=== PATIENT | male | born 1955 | race Caucasian/White ===

== ENCOUNTER 2017-06-21 16:00 | Inpatient (IN) | payer OTHER ==
[2017-07-06] MEDS ORDERED: Heparin 5,000 UNITS/ML VIAL ONE (10:34)
[2017-07-06] MEDS ORDERED: Fentanyl 100 MCG/2 ML VIAL ONE ×2 (11:13→14:39)
[2017-07-06] MEDS ORDERED: Bupivacaine/Epinephrine 0.25% 30 ML VIAL ONE (11:14)
[2017-07-06] MEDS ORDERED: Promethazine HCl 25 MG/ML VIAL ONE (11:14)
[2017-07-06] MEDS ORDERED: PHENYLEPHRINE-NS 100 MCG/ML 10 ML SYRINGE ONE (11:59)
[2017-07-06] MEDS ORDERED: Glycopyrrolate 0.2 MG/ML 5 ML SYRINGE ONE (11:59)
[2017-07-06] MEDS ORDERED: Propofol 200 MG/20 ML VIAL ONE (11:59)
[2017-07-06] MEDS ORDERED: Dexamethasone 20 MG/5 ML VIAL ONE (11:59)
[2017-07-06] MEDS ORDERED: Lidocaine 1% PF 5 ML VIAL ONE (11:59)
[2017-07-06] MEDS ORDERED: Ondansetron HCl/PF 4 MG/2 ML Vial ONE (11:59)
[2017-07-06] MEDS ORDERED: Ketorolac Tromethamine 30 MG/ML VIAL ONE (11:59)
[2017-07-06] MEDS ORDERED: ePHEDrine/0.9% NaCl/PF SYRINGE 50 mg/10 ml ONE (11:59)
[2017-07-06] MEDS ORDERED: Dextrose 50% Abboject 50 ML SYRINGE SLOW IVP PRN (13:54)
[2017-07-06] MEDS ORDERED: Ondansetron HCl/PF 4 MG/2 ML Vial IVP PRN ×3 (13:54→15:02)
[2017-07-06] MEDS ORDERED: Hydrocodone-Acetamin 15 ML UDCUP PO PRN ×2 (13:54→15:19)
[2017-07-06] MEDS ORDERED: Promethazine HCl 25 MG/ML VIAL IM PRN ×2 (13:54→15:02)
[2017-07-06] MEDS ORDERED: Dextrose 5% in Water 1,000 ML IV PRN (13:54)
[2017-07-06] MEDS ORDERED: diphenhydrAMINE HCl 50 MG/ML 1 ML VIAL IVP PRN ×2 (13:54→15:02)
[2017-07-06] MEDS ORDERED: Morphine Sulfate 2 MG/ML SYRINGE SLOW IVP PRN (14:13)
[2017-07-06] MEDS ORDERED: Promethazine HCl 25 MG/ML VIAL SLOW IVP PRN (14:13)
[2017-07-06] MEDS ORDERED: Meperidine HCl/PF 25 MG/ML VIAL SLOW IVP PRN (14:13)
--- NOTE | 2017-07-06 14:33 | OP ---
PREOPERATIVE DIAGNOSIS: Morbid obesity. SURGEON: Kamari Jefferson M.D. PROCEDURES PERFORMED: Laparoscopic sleeve gastrectomy, esophagogastroscopy. INDICATIONS: The patient is a 61-year-old male, morbidly obese, who has attempted multiple weight l oss programs without success. FINDINGS: A 38-Divehi bougie used. PROCEDURE IN DETAIL: After informed consent was obtained, the patient was taken to the operating ro om and given general endotracheal anesthesia. He was placed in the supine position. The abdomen wa s prepped and draped in the usual fashion. Local anesthesia infiltrated subcutaneously and deep, a 12 mm incision was performed 8 inches below the xiphoid slightly to the left. Veress needle inserte d. Drop test performed. Pneumoperitoneum was created to a volume of 2 liters of carbon dioxide. U tilizing a bladeless 12 mm trocar and 0 degree laparoscope, direct visual entry in the abdominal cav ity was performed. Pneumoperitoneum was created to a pressure of 15 mmHg. The patient placed in st eep reverse Trendelenburg position. Nathansen liver retractor inserted. Left lobe of liver retract ed superiorly. Pylorus identified, a 12 mm port placed on the right beneath it and two 12s placed l eft subcostal. The omentum was taken off the greater curvature utilizing the LigaSure. Left crura defined with the LigaSure and short gastrics divided with LigaSure and the left crura defined with L igaSure. A 38-Divehi bougie inserted and directed into the antrum. A linear 60 mm green load stapl er used to divide the antrum to the bougie, gold load along the bougie, and a series of blues throug h the angle of His. Intraoperative endoscopy was performed. The video endoscope inserted under dir ect vision and advanced into the sleeve. The staple line inspected. There were no air leaks and th ere was no bleeding. The stomach insufflated with air under water. There was no air leak. Stomach decompressed. Scope removed. Remnant stomach removed from the abdomen through the left lateral po rt site. The fascia closed with 0 Vicryl suture and the GraNee needle. Trocars and retractors dorota adriane. The skin closed with interrupted 4-0 Rapide. Steri-Strips applied. Sterile bandage applied. The patient tolerated the procedure well and transferred to recovery in good condition. Sponge and needle count verified correct x2.
[2017-07-06] MEDS ORDERED: Naloxone HCl 0.4 mg/ml Vial IV PRN (15:02)
[2017-07-06] MEDS ORDERED: Fentanyl 5000 MCG/250 ML CADD IVPB PRN (15:02)
[2017-07-06] MEDS ORDERED: diphenhydrAMINE HCl 25 MG CAP PO PRN (15:02)
[2017-07-06] MEDS ORDERED: Zolpidem Tartrate 5 MG TAB PO PRN (15:02)
[2017-07-06] MEDS ORDERED: diphenhydrAMINE HCl 50 MG/ML 1 ML VIAL IM PRN (15:02)
[2017-07-06] MEDS ORDERED: Communication Order-Pharmacy FS SCH (15:15)
[2017-07-06] MEDS ORDERED: Fentanyl 20 MCG/ML 250 ML ONE (15:21)
[2017-07-06] MEDS: D5 1/2 NS w/20 mEq KCL 1,000 ML IV SCH ×2 (18:25→22:08)
[2017-07-06 21:23] VITALS: BMI 42.8
[2017-07-07] MEDS: D5 1/2 NS w/20 mEq KCL 1,000 ML IV SCH (00:30)
[2017-07-07 05:10] LABS: #Lymphocytes 0.7 thou/uL (1.20-3.40); #Neutrophils 11.5 thou/uL (1.40-6.50); %Basophils 0.2 % (0.0-1.0); %Eosinophils 0.1 % (0.0-10.0); %Lymphocytes 5.6 % (21.0-51.0); %Monocytes 7.3 % (0.0-10.0); Hematocrit 48.1 % (42.0-52.0); Red Blood Cell (RBC) Count 4.74 mill/uL (4.70-6.10); White Blood Cell (WBC) Count 13.2 thou/uL (4.8-10.8)
[2017-07-07 05:19] LABS: Anion Gap 13 mmol/L (10-20); BUN (Urea Nitrogen) 14 mg/dL (8.4-25.7); Calc. Creatinine Clearance 135 mL/min (70-130); Calcium 8.8 mg/dL (7.8-10.44); Carbon Dioxide 25 mmol/L (22-29); Chloride 104 mmol/L (98-107); Estimated GFR-MDRD 59
[2017-07-07] MEDS ORDERED: Enoxaparin Sodium 40 MG/0.4 ML SYRINGE SC SCH (09:00)
[2017-07-07] MEDS ORDERED: Pantoprazole 40 MG VIAL IVP SCH (09:00)
--- NOTE | 2017-07-07 09:42 | RAD ---
LIMITED SINGLE SIP UPPER GI WITH 15 ML GASTROGRAFIN: HISTORY: A 61-year-old male with post bariatric surgery (vertical gastric sleeve). FINDINGS: There is passage of contrast from the esophagus into the gastric remnant. No contrast extravasation is seen. IMPRESSION: No evidence of obstruction or leak. FLUOROSCOPY TIME: 0.6 minutes. DOSE: 27.341 mGy*\S\cm2. POS: [facility]
--- NOTE | 2017-07-07 10:46 | DIS ---
DISCHARGE DIAGNOSIS: Morbid obesity. PROCEDURES DURING ADMISSION: Laparoscopic sleeve gastrectomy, intraoperative esophagogastroscopy, a nd postoperative Gastrografin swallow. HOSPITAL COURSE: The patient was admitted, taken to the operating room, where he underwent sleeve g astrectomy. Postoperatively, he has done well. X-ray was fine. Started on liquids, tolerating wel l. He is discharged home on hydrocodone and Zofran. Follow up with me in 2 weeks.
[2017-07-07 11:33] VITALS: BP 119/71; TEMP 97.9
[2017-07-07] MEDS ORDERED: Iopamidol 300 61% 30 ML VIAL ONE (12:00)
== END 2017-07-07 12:56 | disposition home or self-care (01) | DRG 621 ==
LOC: SURG A 07-06 09:49
PROVIDERS: ADMIT Surgery; ATTEND Surgery
PROC: 0DB64Z3 Excision of Stomach, Percutaneous Endoscopic Approach, Vertical (ICD-10-PCS; principal; 2017-07-06)
PROC: 0DJ08ZZ Inspection of Upper Intestinal Tract, Via Natural or Artificial Opening Endoscopic (ICD-10-PCS; 2017-07-06)
DX: E66.01 Morbid (severe) obesity due to excess calories (principal); I10 Essential (primary) hypertension; G47.30 Sleep apnea, unspecified; Z68.41 Body mass index [BMI] 40.0-44.9, adult; E20.9 Hypoparathyroidism, unspecified
CPT/HCPCS: 36415; 74241; 80048; 85025; 88307; 88312; 94760; C9113; J1100; J1644; J1650; J1885; J2001; J2405; J2550; J2704; J3010

== ENCOUNTER 2017-06-21 16:18 | Outpatient (CLI) | payer OTHER | END 2017-06-21 16:19 | disposition home or self-care (01) | LOC: LABBT 16:18 | PROVIDERS: ATTEND Surgery | DX: Z01.818 Encounter for other preprocedural examination (principal); E66.01 Morbid (severe) obesity due to excess calories ==

== ENCOUNTER 2017-06-25 10:36 | Outpatient (CLI) | payer OTHER | END 2017-06-25 10:37 | disposition home or self-care (01) | LOC: DTY/OP 10:36 | PROVIDERS: ATTEND Surgery | DX: E66.01 Morbid (severe) obesity due to excess calories (principal); G47.30 Sleep apnea, unspecified; I10 Essential (primary) hypertension | CPT/HCPCS: 97802 ==

== ENCOUNTER 2018-03-04 13:43 | Outpatient (CLI) | payer BC ==
--- NOTE | 2018-03-04 15:33 | MRI ---
MRI CERVICAL SPINE WITHOUT CONTRAST: HISTORY: Cervical disk degeneration, right shoulder pain, and pain between shoulder blades. The exam is limited due to artifact and patient body habitus. FINDINGS: Vertebral body heights and marrow signal are maintained. There are calcified complexes and uncoverte bral hypertrophic changes present at multiple levels. There is a large right-sided disk protrusion c ausing severe right neural foraminal stenosis and nerve root compression at C5-6 level. There is mod erate left-sided neural foraminal stenosis at this level as well. No cord compression is seen. The cervical spinal cord demonstrates normal course, caliber, and signa l. No tonsillar herniation is identified. Moderate left-sided neural foraminal stenosis is seen at C6-7 level. IMPRESSION: 1. Cervical spondylosis with severe right and moderate left neural foraminal stenosis at C5-6 level and moderate left-side neural foraminal stenosis at C6-7 level. 2. Large right-sided disk protrusion causing severe right-sided neural foraminal stenosis and nerve root compression at C5-6 level. POS: [facility]
== END 2018-03-04 13:44 | disposition home or self-care (01) ==
LOC: TBSIIMAG 13:43
PROVIDERS: ATTEND Neurological Surgery
DX: M50.20 Other cervical disc displacement, unspecified cervical region (principal); M47.892 Other spondylosis, cervical region; M99.81 Other biomechanical lesions of cervical region; M50.30 Other cervical disc degeneration, unspecified cervical region
CPT/HCPCS: 72141

== ENCOUNTER 2018-04-11 07:53 | Outpatient (CLI) | payer BC ==
[2018-04-11 09:27] LABS: #Basophils 0.1 thou/uL (0.0-0.2); #Eosinphils 0.8 thou/uL (0.0-0.7); #Lymphocytes 1.9 thou/uL (1.20-3.40); #Monocytes 0.8 thou/uL (0.11-0.59); %Basophils 1.1 % (0.0-1.0); %Eosinophils 10.4 % (0.0-10.0); %Lymphocytes 25.3 % (21.0-51.0); %Monocytes 10.4 % (0.0-10.0); %Neutrophils 52.8 % (42.0-75.0); Hemoglobin 15.2 g/dL (14.0-18.0); Mean Corpuscular Hemoglobin 32.3 pg (27.0-31.0); Mean Platelet Volume 7.6 fL (7.4-10.4); Platelet Count 269 thou/uL (130-400); RBC Distribution Width 12.8 % (11.5-14.5); White Blood Cell (WBC) Count 7.6 thou/uL (4.8-10.8)
[2018-04-11 09:45] LABS: Anion Gap 11 mmol/L (10-20); BUN (Urea Nitrogen) 25 mg/dL (8.4-25.7); Calc. Creatinine Clearance 0 mL/min (70-130); Calcium 9.4 mg/dL (7.8-10.44); Carbon Dioxide 29 mmol/L (22-29); Chloride 102 mmol/L (98-107); Estimated GFR-MDRD 65; Glucose 91 mg/dL (70-105); Potassium 3.7 mmol/L (3.5-5.1); Sodium 138 mmol/L (136-145)
== END 2018-04-11 07:54 | disposition home or self-care (01) ==
LOC: LABBT 07:53
PROVIDERS: ATTEND Neurological Surgery
DX: Z01.818 Encounter for other preprocedural examination (principal); M54.12 Radiculopathy, cervical region
CPT/HCPCS: 80048; 85025

== ENCOUNTER 2018-04-18 06:42 | Day surgery (SDC) | payer BC ==
[2018-04-18] MEDS ORDERED: CEFAZOLIN/Water 2 GM/20 ML SYRINGE ONE (07:06)
[2018-04-18] MEDS ORDERED: Thrombin 5000 UNITS/5 ML VIAL ONE (07:12)
[2018-04-18] MEDS ORDERED: Sodium Chloride 0.9% 10 ML ONE (07:16)
[2018-04-18] MEDS ORDERED: Midazolam HCl 2 mg/2 ml Vial ONE (07:25)
[2018-04-18] MEDS ORDERED: Fentanyl 100 MCG/2 ML VIAL ONE ×5 (08:19→10:09)
--- NOTE | 2018-04-18 09:40 | OP ---
DATE OF PROCEDURE: 04/18/2018 SURGEON: Juan French M.D. CAPTAIN OF GUARDS: Baldev Packer PA-C PROCEDURE: Anterior cervical discectomy C5-6, interbody arthrodesis, intravertebral biomechanical de vice, local morselized autograft, demineralized bone matrix, anterior titanium instrumentation C5-6. PROCEDURE IN DETAIL: The patient was brought to the operating room, intubated. He was positioned ferreira pine in modest extension on a gel-filled donut. Incision was made in the right precervical area and dissecting medial to the sternocleidomastoid muscle, identified the anterior cervical spine and our l evel was confirmed by x-ray. We debrided anterior osteophytes, placed distraction across the disk, a nd using the operating microscope and microdissection techniques, completely decompressed the intrave rtebral disc at C5-6. The bony endplates were then decorticated for the purpose of arthrodesis and a ppropriately sized intravertebral biomechanical PEEK device was brought into the field, filled with d emineralized bone and local morselized autograft, and tapped into place securely at C5-6. Next, an a nterior plate was brought in the field inserted to C5 and C6 using two 14 mm screws at each level. T he wound was then extensively irrigated, immaculate hemostasis was secured. The wound was closed in anatomic layers.
[2018-04-18] MEDS ORDERED: Ondansetron HCl/PF 4 MG/2 ML Vial ONE (10:48)
[2018-04-18] MEDS ORDERED: ePHEDrine/0.9% NaCl/PF SYRINGE 50 mg/10 ml ONE (10:48)
[2018-04-18] MEDS ORDERED: Glycopyrrolate 0.2 MG/ML 5 ML SYRINGE ONE (10:48)
[2018-04-18] MEDS ORDERED: Dexamethasone 20 MG/5 ML VIAL ONE (10:48)
[2018-04-18] MEDS ORDERED: PROPOFOL 200 MG/20 ML VIAL ONE (10:48)
[2018-04-18] MEDS ORDERED: Ketorolac Tromethamine 30 MG/ML VIAL ONE (10:48)
[2018-04-18] MEDS ORDERED: Lidocaine 1% PF 5 ML VIAL ONE (10:48)
[2018-04-18] MEDS ORDERED: tiZANidine HCl 4 MG TAB ONE (11:12)
[2018-04-18] MEDS ORDERED: HYDROcodone/Acetaminophen 5/325 mg Tablet ONE (11:36)
== END 2018-04-18 12:00 | disposition home or self-care (01) ==
LOC: SDC 06:42
PROVIDERS: ATTEND Neurological Surgery
PROC: 0RG10A0 Fusion of Cervical Vertebral Joint with Interbody Fusion Device, Anterior Approach, Anterior Column, Open Approach (ICD-10-PCS; principal; 2018-04-18)
PROC: 0RT30ZZ Resection of Cervical Vertebral Disc, Open Approach (ICD-10-PCS; principal; 2018-04-18)
DX: M50.322 Other cervical disc degeneration at C5-C6 level (principal); M47.812 Spondylosis without myelopathy or radiculopathy, cervical region; I10 Essential (primary) hypertension; E03.9 Hypothyroidism, unspecified; M10.9 Gout, unspecified; M19.90 Unspecified osteoarthritis, unspecified site; Z79.899 Other long term (current) drug therapy; Z98.890 Other specified postprocedural states
CPT/HCPCS: 76001; 96374; A4216; C1713; C1776; J2250; J3010; J3490

== ENCOUNTER 2018-05-04 15:23 | Outpatient (CLI) | payer BC ==
--- NOTE | 2018-05-04 15:50 | RAD ---
RADIOGRAPH CERVICAL SPINE 3 VIEWS: 05/04/18 HISTORY: 62-year-old male with "M47.812, spinal osteoarthritis." Cervicalgia and cervical spondylosis. COMPARISON: None. FINDINGS: There are anterior metallic plate and screws at C5 and C6. Tiny metallic markers for interbody graft/ cage at the C5-6 disc space. Mild disc space narrowing at C4-5. Mild to moderate disc space narrowing at C6-7. The C7-T1 level is obscured by the shoulders on the lateral view. Alignment is normal throu ghout the visualized levels. The vertebral body heights are maintained. No prevertebral soft tissue s welling. Normal bilateral atlanto-axial joints. There are no high grade degenerative facet changes. IMPRESSION: 1. Status post anterior cervical discectomy and fusion at C5-6. 2. Mild discogenic degenerative changes at C4-5 and C6-7. HARSH [] POS: [facility]
== END 2018-05-04 15:24 | disposition home or self-care (01) ==
LOC: TBSIIMAG 15:23
PROVIDERS: ATTEND Physician Assistant
DX: M47.892 Other spondylosis, cervical region (principal); Z98.1 Arthrodesis status
CPT/HCPCS: 72040

== ENCOUNTER 2018-06-23 15:09 | Outpatient (CLI) | payer BC ==
--- NOTE | 2018-06-23 16:33 | RAD ---
FOUR VIEWS CERVICAL SPINE: Date: 06-23-18 History: Cervical radiculopathy. Neck surgery in March 2018. Comparison: 05-14-18 FINDINGS: Again noted are post-surgical changes related to anterior cervical fusion at the C5-6 level with ante rior plate and screws again transfixing this level with intradiscal prosthesis present. No hardware c omplication is seen. C1 to the cervicothoracic junction is seen on the lateral view. There is no evid ence of a fracture or subluxation. There is mild osteophyte formation seen at the C3-4 and C4-5 level s as well as the C6-7 level with minimal osteophyte formation present. Vertebral body heights are wit hin normal limits. The prevertebral soft tissues are within normal limits. IMPRESSION: Stable mild degenerative changes as well as stable post-operative changes of the cervical spine. POS: [facility]
== END 2018-06-23 15:10 | disposition home or self-care (01) ==
LOC: TBSIIMAG 15:09
PROVIDERS: ATTEND Neurological Surgery
DX: M47.22 Other spondylosis with radiculopathy, cervical region (principal); Z98.890 Other specified postprocedural states
CPT/HCPCS: 72040

== ENCOUNTER 2018-07-21 08:56 | Outpatient (CLI) | payer BC ==
--- NOTE | 2018-07-21 12:39 | MRI ---
MRI THORACIC SPINE: INDICATIONS: Thoracic pain. Mid back pain. TECHNIQUE: Multiplanar, multisequential images of the thoracic spine obtained with multiplanar reconstruction. FINDINGS: The thoracic vertebrae maintain normal height and alignment. Vertebral body signal is normal. No co mpression or edema identified. There are mild degenerative changes present with anterior osteophytes from the thoracic vertebrae. At T6-T7, there is a central disk protrusion, which indents the anterior thecal sac and effaces the a nterior subarachnoid space. It mildly impinges on the thoracic cord at this level. Mild diffuse disk bulge at T10-T11 flattens the thecal sac and mildly effaces the anterior subarachno id space. No cord impingement. Mild bulge at T11-T12 also minimally effaces the anterior subarachnoid space. Thoracic cord signal appears normally maintained. IMPRESSION: Central disk protrusion at T6-T7 impinges on the anterior thoracic cord. POS: [facility]
== END 2018-07-21 08:57 | disposition home or self-care (01) ==
LOC: BICMRI 08:56
PROVIDERS: ATTEND Neurological Surgery
DX: M54.6 Pain in thoracic spine (principal); M51.24 Other intervertebral disc displacement, thoracic region
CPT/HCPCS: 72146

== ENCOUNTER 2019-02-24 09:43 | Outpatient (CLI) | payer BC ==
--- NOTE | 2019-02-24 11:04 | MRI ---
MRI LUMBAR SPINE NONCONTRAST: HISTORY: Low back pain COMPARISON: None FINDINGS: Heterogeneous T1 marrow signal intensity. Type II Modic changes at L4-L5 and L5-S1. Appropriate signal intensity of the paraspinal muscles and solid organs. Conus medullaris terminates at the inferior aspect of L1. T12-L1:Minimal right paracentral disc bulge. No significant central canal stenosis or neural foramina l narrowing. L1-L2:Mild loss of disc space height. Generalized disc bulge with mild central canal stenosis. Mild b ilateral neural foraminal narrowing. L2-L3:Adequate disc hydration. No significant loss of disc space height. Minimal generalized disc bul ge with mass effect and flattening of the thecal sac. Overall mild central canal stenosis. Right neural foramen is patent. Mild left neural foraminal narrowing. L3-L4:Adequate disc hydration. Generalized disc bulge flattens the ventral thecal sac. Mild central c anal stenosis. Bilaterally, neural foramina are patent. L4-L5:Mild loss of disc space height. Generalized disc bulge results in mild central canal stenosis. Disc material abuts but does not obscure either traversing L5 nerve root. Mild facet hypertrophy. Moderate right and mild to moderate left foraminal narrowing. L5-S1:Severe loss of disc space height. Central, right subarticular disc bulge. No significant stenos is of the thecal sac. Subarticular zones are unremarkable. Moderate right and mild to moderate left foraminal narrowing. IMPRESSION: Degenerative changes of lumbar spine as detailed above. No evidence of high-grade central canal steno sis. Transcribed Date/Time: 02/24/2019 11:15 AM
== END 2019-02-24 09:44 | disposition home or self-care (01) ==
LOC: TBSIIMAG 09:43
PROVIDERS: ATTEND Neurological Surgery
DX: M54.5 Low back pain (principal); M47.816 Spondylosis without myelopathy or radiculopathy, lumbar region
CPT/HCPCS: 72148